=== PATIENT | male | born 1940 | race Caucasian/White ===

== ENCOUNTER 2022-04-10 05:39 | Outpatient (CLI) | payer MEDICARE ==
[~2022-04-10] VITALS: Ht 177.8 cm; Wt 105.0 kg
[2022-04-10] MEDS ORDERED: GABA300C PO (10:14)
[2022-04-10] MEDS ORDERED: AMLO-375 PO (10:14)
[2022-04-10] MEDS ORDERED: ALFU10TA12 PO (10:14)
[2022-04-10] MEDS ORDERED: ROSU5TAB13 PO (10:14)
== END 2022-04-10 10:33 | disposition home or self-care (01) ==
LOC: PREOP 05:39
PROVIDERS: ATTEND Surgery
DX: Z01.818 Encounter for other preprocedural examination (principal)

== ENCOUNTER 2022-04-19 12:37 | Day surgery (SDC) | payer MEDICARE, OTHER ==
[2022-04-19] VITALS (7 sets, daily range): BP systolic 85–136; BP diastolic 50–85
[~2022-04-19] VITALS: Ht 177.8 cm; Wt 105.0 kg
[~2022-04-19 12:37] MED LIST: ALFU10TA12 PO; AMLO-375 PO; GABA300C PO; ROSU5TAB13 PO
[2022-04-19] MEDS ORDERED: LACTATED RINGERS 1,000 ML IV ONE (13:01)
[2022-04-19] MEDS ORDERED: LACTATED RINGERS 1,000 ML IV STA (13:03)
--- NOTE | 2022-04-19 14:11 | Progress Note-Pre Operative ---
Pre-Operative Progress Note Date H&P Reviewed: Apr 19, 2022 Time H&P Reviewed: 14:11 History & Physical: H&P Reviewed, Patient Examed, No changes noted Pre-Operative Diagnosis: Positive Cologuard JEAN CLAUDE BRUNO DO Apr 19, 2022 14:11
[2022-04-19] MEDS ORDERED: PROPOFOL INJECTION 50 ML IV ONE (15:25)
--- NOTE | 2022-04-19 15:56 | Progress Note-Post Operative ---
Post-Operative Progess Note Surgeon (s)/Stranner (s) Surgeon JEAN CLAUDE BRUNO DO Stranner: N/A Pre-Operative Diagnosis Positive Cologuard Post-Operative Diagnosis Colon Polyps Procedure & Operative Findings Date of Procedure 04/19/22 Procedure Performed/Findings Colonoscopy with hot biopsies polypectomy x2 Anesthesia Type per KISS MIXER Estimated Blood Loss Estimated blood loss (mL): None Specimens/Packing Specimens Removed Ascending and Sigmoid JEAN CLAUDE BRUNO DO Apr 19, 2022 15:56
--- NOTE | 2022-04-19 15:58 | Discharge Inst-Simple/Standard ---
Discharge Inst-Standard Patient Instructions/Follow Up Plan of Care/Instructions/FU: Follow up 2 weeks Mert Activity as Tolerated: Yes Discharge Diet: No Restrictions JEAN CLAUDE BRUNO DO Apr 19, 2022 15:58
--- NOTE | 2022-04-19 16:06 | Anesthesia-General Post-Op ---
MAC Patient Condition Mental Status/LOC: Same as Preop Cardiovascular: Satisfactory Nausea/Vomiting: Absent Respiratory: Satisfactory Pain: Controlled Complications: Absent Post Op Complications Complications None Follow Up Care/Instructions Patient Instructions None needed. Anesthesiology Discharge Order Discharge Order Patient is doing well, no complaints, stable vital signs, no apparent adverse anesthesia problems. No complications reported per nursing. CHARISSE CROWE CRNA Apr 19, 2022 16:06
--- NOTE | 2022-04-19 23:14 | OPERATIVE REPORT ---
DATE OF SERVICE: 04/19/2022 PREOPERATIVE DIAGNOSIS: Positive Cologuard. POSTOPERATIVE DIAGNOSES: Colon polyps, diverticulosis. PROCEDURE: Colonoscopy with hot biopsy polypectomy x2. SURGEON: Jean Claude Painting DO ANESTHESIA: Per SPRAY GUNNER. ESTIMATED BLOOD LOSS: None. COMPLICATIONS: None. INDICATIONS: The patient is an 81-year-old male with positive Cologuard. He understands risks and benefits of procedure and wishes to proceed. Consent was signed and in chart. DESCRIPTION OF PROCEDURE: The patient was taken to the endoscopy suite, placed in the left lateral recumbent position. Timeout was performed. Digital rectal exam was performed. No palpable polyps, masses or ulcerations. Scope was inserted in the rectum, advanced all the way to the cecum with minimal difficulty. Prep was adequate with irrigation and suction. Scope was then slowly retracted back. No polyps, masses or ulcerations within the cecum. In the ascending colon, polyp was present, which hot biopsy polypectomy was performed. Scope was then slowly retracted back. No polyps, masses or ulcerations within the remainder of the ascending, transverse, descending colon. In the sigmoid colon, another polyp was present, which hot biopsy polypectomy was performed. Scope was then retracted back into the rectum, where it was also retroflexed noting no other pathology. Throughout the colon, some diverticula present. Scope was then retracted until completely removed. The patient tolerated the procedure well with no complications, taken to recovery in stable condition. RECOMMENDATIONS: The patient will need repeat colonoscopy on an as needed basis due to age. Follow up in the office in 2 weeks to discuss pathology results. Job ID: [id number] DocumentID: [id number] Dictated Date: 04/19/2022 16:07:28 Exchange Floor Manager Date: 04/19/2022 23:13:00 Dictated By: JEAN CLAUDE PAINTING DO
== END 2022-04-19 16:36 | disposition home or self-care (01) ==
LOC: ENDO 12:37
PROVIDERS: ATTEND Surgery
DX: Z12.11 Encounter for screening for malignant neoplasm of colon (principal); K63.5 Polyp of colon; K57.30 Diverticulosis of large intestine without perforation or abscess without bleeding; Z87.891 Personal history of nicotine dependence